=== PATIENT | female | born 1980 | race Caucasian/White ===

== ENCOUNTER → 2021-11-20 11:45 | Outpatient (CLI) | payer OTHER, SELFPAY ==
[2021-11-20 13:05] LABS: Influenza A - CEPHEID Flu A NEGATIVE (NEGATIVE); Influenza B - CEPHEID Flu B NEGATIVE (NEGATIVE)
[2021-11-20 13:24] LABS: COVID-19 CEPHEID PCR (VTM/NP) Negative (Negative)
== END ==
PROVIDERS: Visit Provider Physician Assistant
DX: Z20.822 Contact with and (suspected) exposure to COVID-19 (principal); R09.81 Nasal congestion
CPT/HCPCS: 0240U

== ENCOUNTER 2022-05-09 15:42 | Emergency (ER) | payer OTHER, MEDICAID, SELFPAY ==
[2022-05-09 15:52] VITALS: BP 100/51; PULSE 96; RESP 20; TEMP 38.1; O2SAT 97
[2022-05-09 16:13] LABS: Add Manual Diff / Slide Review NO; Basophils Absolute Auto 100 /uL (0-100); Basophils Percent Auto 1.3 % (0-2); Eosinophils Absolute Auto 100 /uL (0-450); Eosinophils Percent Auto 1.4 % (2-4); Hematocrit 32.7 % (36-46); Hemoglobin 11.4 g/dL (12.0-16.0); Lymphocytes Absolute Auto 600 /uL (1100-4500); Lymphocytes Percent Auto 12.9 % (25-40); Mean Corpuscular HGB Conc 34.8 % (30-36); Mean Corpuscular Hemoglobin 28.3 PG (26-34); Mean Corpuscular Volume 81.5 fL (80-100); Monocytes Absolute Auto 600 /uL (0-900); Monocytes Percent Auto 13.3 % (3-14); Neutrophils Absolute Auto 3300 /uL (1500-7000); Neutrophils Percent Auto 71.1 % (50-75); Platelet Count 157 X10^3/uL (150-400); Red Blood Cell Count 4.02 X10^6/uL (4.0-5.2); Red Cell Distribution Width 13.5 % (11.6-14.8); White Blood Cell Count 4.6 X10^3/uL (4.5-11.0)
[2022-05-09 16:23] LABS: Lactate (Lactic Acid) 0.8 mmol/L (0.7-2.1)
[2022-05-09 16:46] LABS: Alanine Aminotransferase 19 IU/L (<35); Albumin 4.6 g/dL (3.5-5.0); Albumin Globulin Ratio 1.4 (1.0-2.8); Alkaline Phosphatase 43 U/L (38-126); Aspartate Aminotransferase 32 IU/L (14-36); BUN Creatinine Ratio 21.4 (6-22); Bilirubin Total 0.6 mg/dL (0.2-1.3); Blood Urea Nitrogen 15 mg/dL (7-17); Calcium 9.2 mg/dL (8.4-10.2); Carbon Dioxide 22 mmol/L (22-32); Chloride 103 mmol/L (98-107); Estimated Glomerular Filt Rate > 60 mL/min (>60); Globulin 3.2 g/dL (1.7-4.1); Glucose 96 mg/dL (70-100); HEMOLYSIS < 15 (0-50); Lipase 160 U/L (23-300); Potassium 3.8 mmol/L (3.4-5.1); Sodium 135 mmol/L (137-145); Total Protein 7.8 g/dL (6.3-8.2)
[2022-05-09 17:36] VITALS: TEMP 38.1
[2022-05-09] MEDS: SODIUM CHLORIDE 0.9% 1,000 ML 1000 ML IV (17:38)
[2022-05-09 17:42] VITALS: BP 101/58; PULSE 100; RESP 22; O2SAT 100
[2022-05-09 17:45] VITALS: TEMP 38.1
[2022-05-09] MEDS: KETOROLAC 30 MG/ML VIAL IV (17:45)
[2022-05-09] MEDS: ONDANSETRON 4 MG/2 ML INJ IV (17:45)
[2022-05-09 17:55] LABS: COVID19 -Nasal RAPID POSITIVE (Negative)
[2022-05-09 18:54] VITALS: TEMP 37.5
--- NOTE | 2022-05-09 18:55 | ED.FEVER ---
HPI - Fever <Brayden Zhao PA-C - Last Filed: 05/09/22 19:02> General Chief Complaint: Fever Stated Complaint: FEVER RIGHT SIDE LOWER PAIN Time Seen by Provider: 05/09/22 17:34 Source: patient Mode of arrival: Ambulatory History of Present Illness HPI Narrative: 41-year-old female with no reported past medical history presents to the ED with 1 day fever, chills, groin pain, back pain. Patient also endorses a mild headache and nausea. Patient denies runny nose, sore throat, cough, chest pain, shortness of breath, vomiting, lightheadedness, dizziness, syncope. Patient denies numbness, tingling, weakness, saddle paresthesias, IV drug use. Related Data Home Medications Medication Instructions Recorded Confirmed No Known Home Medications 11/20/21 05/09/22 Allergies Allergy/AdvReac Type Severity Reaction Status Date / Time No Known Drug Allergies Allergy Unverified 11/20/21 11:41 Review of Systems <Brayden Zhao PA-C - Last Filed: 05/09/22 19:02> Review of Systems ROS Unobtainable: All systems reviewed & are unremarkable except as noted in HPI and below Constitutional Constitutional: Reports chills, Denies fatigue, Reports fever(s), Denies frequent falls, Denies lethargy and Denies weakness Eyes Eyes: Denies change in vision, Denies eye discharge, Denies irritation and Denies loss of vision ENT Ears, Nose, Mouth, and Throat: Denies change in voice, Denies dizziness, Denies neck pain, Denies sore throat and Denies throat swelling Cardiovascular Cardiovascular: Denies chest pain, Denies irregular heart rhythm, Denies lightheadedness, Denies palpitations, Denies dyspnea, Denies dyspnea on exertion and Denies orthopnea Respiratory Respiratory: Denies cough, Denies dyspnea, Denies dyspnea on exertion and Denies wheezing Gastrointestinal Gastrointestinal: Denies abdominal pain, Denies change in bowel habits, Denies diarrhea, Denies nausea and Denies vomiting Genitourinary Genitourinary: Denies hematuria, Denies flank pain, Denies urinary incontinence and Denies urinary urgency Comments: Bilateral groin pain. Musculoskeletal Musculoskeletal: Denies back pain, Denies muscle weakness, Denies neck pain, Denies numbness and Denies tingling Comments: Lower back pain Integumentary/Breasts Skin/Breast: Denies pruritus, Denies erythema, Denies rash and Denies wounds Neurologic Neurologic: Denies behavioral changes, Denies confusion, Denies dizziness, Denies frequent falls, Denies loss of vision, Denies numbness, Denies tingling and Denies weakness Psychiatric Psychiatric: Denies anxiety, Denies behavioral changes, Denies confusion, Denies depression, Denies homicidal ideation and Denies suicidal ideation Endocrine Endocrine: Denies fatigue, Denies flushing and Denies palpitations Hematologic/Lymphatic Hematologic/Lymphatic: Denies easy bruising Allergic/Immunologic Allergic/Immunologic: Denies urticaria, Denies throat swelling and Denies wheezing Patient History <Brayden Zhao PA-C - Last Filed: 05/09/22 19:02> Social History Smoking Status: Never smoker Smoking Status: Never smoker Exam <Brayden Zhao PA-C - Last Filed: 05/09/22 19:02> Narrative Exam Narrative: Const General:?cooperative, healthy appearing and comfortable [facility] Head:?normal to inspection Ears:?hearing grossly normal bilaterally Nose:?external nose normal Face and sinus:?normal facial exam and sinuses nontender Mouth:?oral mucosae normal Throat:?posterior oropharynx normal Eyes General:?appearance normal, both eyes and all related structures Neck Neck:?normal visual inspection and no lymphadenopathy noted; no neck stiffness Resp Effort & Inspection:?normal respiratory effort Auscultation:?clear to auscultation bilaterally Cardio Rate:?regular rate Rhythm:?regular rhythm GI Abdomen is soft, nondistended, nontender to palpation. No CVA tenderness. Musculoskeletal No midline tenderness to palpation. Full range of motion. Neurovascularly intact. Neuro General:?patient alert, patient awake and patient oriented x3 Initial Vital Signs Initial Vital Signs: Vital Signs Temperature 100.5 F H 05/09/22 15:52 Pulse Rate 96 H 05/09/22 15:52 Respiratory Rate 20 05/09/22 15:52 Blood Pressure 100/51 L 05/09/22 15:52 Pulse Oximetry 97 05/09/22 15:52 Oxygen Delivery Method 05/09/22 15:52 <Karla Hughes DO - Last Filed: 05/10/22 20:42> Initial Vital Signs Initial Vital Signs: Vital Signs Temperature 100.5 F H 05/09/22 15:52 Pulse Rate 96 H 05/09/22 15:52 Respiratory Rate 20 05/09/22 15:52 Blood Pressure 100/51 L 05/09/22 15:52 Pulse Oximetry 97 05/09/22 15:52 Oxygen Delivery Method 05/09/22 15:52 Course <Brayden Zhao PA-C - Last Filed: 05/09/22 19:02> Orders Ordered: Discontinued Medications Acetaminophen (Acetaminophen 325 Mg Tablet) 650 mg PO NOW ONE Stop: 05/09/22 17:19 Last Admin: 05/09/22 17:41 Dose: Not Given Documented By: VINNY Sodium Chloride (Normal Saline 0.9%) 1,000 mls @ 1,000 mls/hr IV BOLUS ONE Stop: 05/09/22 18:31 Last Infusion: 05/09/22 18:54 Dose: 0 mls/hr Documented By: Admin: 05/09/22 17:38 Dose: 1,000 mls/hr Documented By: VINNY Ibuprofen (Ibuprofen 400 Mg Tablet) 800 mg PO NOW ONE Stop: 05/09/22 17:19 Last Admin: 05/09/22 17:42 Dose: Not Given Documented By: VINNY Ketorolac Tromethamine (Ketorolac 30 Mg/Ml Vial) 30 mg IV NOW ONE Stop: 05/09/22 17:43 Last Admin: 05/09/22 17:45 Dose: 30 mg Documented By: VINNY Ondansetron HCl (Ondansetron 4 Mg/2 Ml Inj) 4 mg IV NOW ONE Stop: 05/09/22 17:43 Last Admin: 05/09/22 17:45 Dose: 4 mg Documented By: VINNY Vital Signs Vital signs: Vital Signs - 8 hr 05/09/22 15:52 05/09/22 17:36 05/09/22 17:45 Temperature 100.5 F H 100.6 F H 100.5 F H Pulse Rate 96 H Respiratory Rate 20 Blood Pressure 100/51 L Pulse Oximetry 97 Oxygen Delivery Method Room Air 05/09/22 17:42 05/09/22 18:54 Temperature 99.5 F Pulse Rate 100 H Respiratory Rate 22 Blood Pressure 101/58 L Pulse Oximetry 100 Oxygen Delivery Method Room Air <Karla Hughes DO - Last Filed: 05/10/22 20:42> Orders Ordered: Discontinued Medications Acetaminophen (Acetaminophen 325 Mg Tablet) 650 mg PO NOW ONE Stop: 05/09/22 17:19 Last Admin: 05/09/22 17:41 Dose: Not Given Documented By: VINNY Sodium Chloride (Normal Saline 0.9%) 1,000 mls @ 1,000 mls/hr IV BOLUS ONE Stop: 05/09/22 18:31 Last Infusion: 05/09/22 18:54 Dose: 0 mls/hr Documented By: Admin: 05/09/22 17:38 Dose: 1,000 mls/hr Documented By: VINNY Ibuprofen (Ibuprofen 400 Mg Tablet) 800 mg PO NOW ONE Stop: 05/09/22 17:19 Last Admin: 05/09/22 17:42 Dose: Not Given Documented By: VINNY Ketorolac Tromethamine (Ketorolac 30 Mg/Ml Vial) 30 mg IV NOW ONE Stop: 05/09/22 17:43 Last Admin: 05/09/22 17:45 Dose: 30 mg Documented By: VINNY Ondansetron HCl (Ondansetron 4 Mg/2 Ml Inj) 4 mg IV NOW ONE Stop: 05/09/22 17:43 Last Admin: 05/09/22 17:45 Dose: 4 mg Documented By: VINNY Vital Signs Vital signs: Vital Signs - 8 hr 05/09/22 15:52 05/09/22 17:36 05/09/22 17:45 Temperature 100.5 F H 100.6 F H 100.5 F H Pulse Rate 96 H Respiratory Rate 20 Blood Pressure 100/51 L Pulse Oximetry 97 Oxygen Delivery Method Room Air 05/09/22 17:42 05/09/22 18:54 Temperature 99.5 F Pulse Rate 100 H Respiratory Rate 22 Blood Pressure 101/58 L Pulse Oximetry 100 Oxygen Delivery Method Room Air MDM - Fever <Brayden Zhao PA-C - Last Filed: 05/09/22 19:02> Lab Data Attestation: I reviewed the patient's lab results. Lab results narrative: Labs within normal limits. UA without UTI. Result diagrams: 05/09/22 16:02 05/09/22 16:02 Labs: Lab Results 07/25/22 07/25/22 07/25/22 Range/Units 16:02 16:02 16:02 WBC 4.6 (4.5-11.0) X10^3/uL RBC 4.02 (4.0-5.2) X10^6/uL Hgb 11.4 L (12.0-16.0) g/dL Hct 32.7 L (36-46) % MCV 81.5 (80-100) fL MCH 28.3 (26-34) PG MCHC 34.8 (30-36) % RDW 13.5 (11.6-14.8) % Plt Count 157 (150-400) X10^3/uL Neut % (Auto) 71.1 (50-75) % Lymph % (Auto) 12.9 L (25-40) % [place] % (Auto) 13.3 (3-14) % Eos % (Auto) 1.4 L (2-4) % Baso % (Auto) 1.3 (0-2) % Neut # (Auto) 3300 (6734-5830) /uL Lymph # (Auto) 600 L (6455-0910) /uL [facility] # (Auto) 600 (0-900) /uL Eos # (Auto) 100 (0-450) /uL Baso # (Auto) 100 (0-100) /uL Sodium 135 L (137-145) mmol/L Potassium 3.8 (3.4-5.1) mmol/L Chloride 103 (98-107) mmol/L Carbon Dioxide 22 (22-32) mmol/L BUN 15 (7-17) mg/dL Creatinine 0.70 (0.52-1.04) mg/dL Estimated GFR > 60 (>60) mL/min BUN/Creatinine Ratio 21.4 (6-22) Glucose 96 (70-100) mg/dL Lactate 0.8 (0.7-2.1) mmol/L Calcium 9.2 (8.4-10.2) mg/dL Total Bilirubin 0.6 (0.2-1.3) mg/dL AST 32 (14-36) IU/L ALT 19 (<35) IU/L Alkaline Phosphatase 43 (38-126) U/L Total Protein 7.8 (6.3-8.2) g/dL Albumin 4.6 (3.5-5.0) g/dL Globulin 3.2 (1.7-4.1) g/dL Albumin/Globulin Ratio 1.4 (1.0-2.8) Lipase 160 (23-300) U/L SARS-CoV-2 (PCR) (Negative) 05/09/22 Range/Units 17:32 WBC (4.5-11.0) X10^3/uL RBC (4.0-5.2) X10^6/uL Hgb (12.0-16.0) g/dL Hct (36-46) % MCV (80-100) fL MCH (26-34) PG MCHC (30-36) % RDW (11.6-14.8) % Plt Count (150-400) X10^3/uL Neut % (Auto) (50-75) % Lymph % (Auto) (25-40) % [facility] % (Auto) (3-14) % Eos % (Auto) (2-4) % Baso % (Auto) (0-2) % Neut # (Auto) (8212-8336) /uL Lymph # (Auto) (7192-4581) /uL [facility] [place] # (Auto) (0-900) /uL Eos # (Auto) (0-450) /uL Baso # (Auto) (0-100) /uL Sodium (137-145) mmol/L Potassium (3.4-5.1) mmol/L Chloride (98-107) mmol/L Carbon Dioxide (22-32) mmol/L BUN (7-17) mg/dL Creatinine (0.52-1.04) mg/dL Estimated GFR (>60) mL/min BUN/Creatinine Ratio (6-22) Glucose (70-100) mg/dL Lactate (0.7-2.1) mmol/L Calcium (8.4-10.2) mg/dL Total Bilirubin (0.2-1.3) mg/dL AST (14-36) IU/L ALT (<35) IU/L Alkaline Phosphatase (38-126) U/L Total Protein (6.3-8.2) g/dL Albumin (3.5-5.0) g/dL Globulin (1.7-4.1) g/dL Albumin/Globulin Ratio (1.0-2.8) Lipase (23-300) U/L SARS-CoV-2 (PCR) Positive H (Negative) Point of Care Testing Test Results Negative Urine Dip Bedside Urine Glucose Negative Bedside Urine Bilirubin - Negative Bedside Urine Ketone - Negative Urine Specific [place] 1.010 Bedside Urine Occult Blood - Negative Bedside Urine pH 6.0 Bedside Urine Protein - Negative Bedside Urine Urobilinogen - Negative Bedside Urine Nitrite - Negative Bedside Urine Leukocytes - Negative Esterase MDM Narrative Medical decision making narrative: 41-year-old female with no reported past medical history presents to the ED with 1 day fever, chills, groin pain, back pain. Concern for COVID-19 infection versus other viral syndrome versus musculoskeletal sprain/strain. Unlikely intra-abdominal pathology, given physical exam with no tenderness to palpation and patient describes pain as musculoskeletal. Patient was positive for COVID-19. Recommend supportive care. Discussed findings and recommendations with patient. ED return precautions discussed with patient. Patient verbalized understanding. <Karla Hughes, DO - Last Filed: 05/10/22 20:42> Lab Data Labs: Lab Results 05/09/22 05/09/22 05/09/22 Range/Units 16:02 16:02 16:02 WBC 4.6 (4.5-11.0) X10^3/uL RBC 4.02 (4.0-5.2) X10^6/uL Hgb 11.4 L (12.0-16.0) g/dL Hct 32.7 L (36-46) % MCV 81.5 (80-100) fL MCH 28.3 (26-34) PG MCHC 34.8 (30-36) % RDW 13.5 (11.6-14.8) % Plt Count 157 (150-400) X10^3/uL Neut % (Auto) 71.1 (50-75) % Lymph % (Auto) 12.9 L (25-40) % [facility] % (Auto) 13.3 (3-14) % Eos % (Auto) 1.4 L (2-4) % Baso % (Auto) 1.3 (0-2) % Neut # (Auto) 3300 (0525-9569) /uL Lymph # (Auto) 600 L (0914-4386) /uL [facility] # (Auto) 600 (0-900) /uL Eos # (Auto) 100 (0-450) /uL Baso # (Auto) 100 (0-100) /uL Sodium 135 L (137-145) mmol/L Potassium 3.8 (3.4-5.1) mmol/L Chloride 103 (98-107) mmol/L Carbon Dioxide 22 (22-32) mmol/L BUN 15 (7-17) mg/dL Creatinine 0.70 (0.52-1.04) mg/dL Estimated GFR > 60 (>60) mL/min BUN/Creatinine Ratio 21.4 (6-22) Glucose 96 (70-100) mg/dL Lactate 0.8 (0.7-2.1) mmol/L Calcium 9.2 (8.4-10.2) mg/dL Total Bilirubin 0.6 (0.2-1.3) mg/dL AST 32 (14-36) IU/L ALT 19 (<35) IU/L Alkaline Phosphatase 43 (38-126) U/L Total Protein 7.8 (6.3-8.2) g/dL Albumin 4.6 (3.5-5.0) g/dL Globulin 3.2 (1.7-4.1) g/dL Albumin/Globulin Ratio 1.4 (1.0-2.8) Lipase 160 (23-300) U/L SARS-CoV-2 (PCR) (Negative) 05/09/22 Range/Units 17:32 WBC (4.5-11.0) X10^3/uL RBC (4.0-5.2) X10^6/uL Hgb (12.0-16.0) g/dL Hct (36-46) % MCV (80-100) fL MCH (26-34) PG MCHC (30-36) % RDW (11.6-14.8) % Plt Count (150-400) X10^3/uL Neut % (Auto) (50-75) % Lymph % (Auto) (25-40) % [place] % (Auto) (3-14) % Eos % (Auto) (2-4) % Baso % (Auto) (0-2) % Neut # (Auto) (9254-3465) /uL Lymph # (Auto) (5666-2214) /uL [facility] # (Auto) (0-900) /uL Eos # (Auto) (0-450) /uL Baso # (Auto) (0-100) /uL Sodium (137-145) mmol/L Potassium (3.4-5.1) mmol/L Chloride (98-107) mmol/L Carbon Dioxide (22-32) mmol/L BUN (7-17) mg/dL Creatinine (0.52-1.04) mg/dL Estimated GFR (>60) mL/min BUN/Creatinine Ratio (6-22) Glucose (70-100) mg/dL Lactate (0.7-2.1) mmol/L Calcium (8.4-10.2) mg/dL Total Bilirubin (0.2-1.3) mg/dL AST (14-36) IU/L ALT (<35) IU/L Alkaline Phosphatase (38-126) U/L Total Protein (6.3-8.2) g/dL Albumin (3.5-5.0) g/dL Globulin (1.7-4.1) g/dL Albumin/Globulin Ratio (1.0-2.8) Lipase (23-300) U/L SARS-CoV-2 (PCR) Positive H (Negative) Point of Care Testing Test Results Negative Urine Dip Bedside Urine Glucose Negative Bedside Urine Bilirubin - Negative Bedside Urine Ketone - Negative Urine Specific [place] 1.010 Bedside Urine Occult Blood - Negative Bedside Urine pH 6.0 Bedside Urine Protein - Negative Bedside Urine Urobilinogen - Negative Bedside Urine Nitrite - Negative Bedside Urine Leukocytes - Negative Esterase Discharge Plan Departure Patient Disposition: Home Clinical Impression: COVID-19 Instructions: DI for COVID-19 (Suspected or Confirmed ) Activity Restrictions/Additional Instructions: You were evaluated in the ED today for upper respiratory symptoms. You tested positive for COVID-19 in the emergency room. Your symptoms are likely due to COVID-19. Your hip and pelvic pain appears to be musculoskeletal in nature. You may take Tylenol or ibuprofen for your symptoms. Return to the ED if you develop chest pain, shortness of breath. Prescriptions: No Action No Known Home Medications Visit Report Forms: Patient Portal/API <Karla Hughes DO - Last Filed: 05/10/22 20:42> Cosign ED Attending Nida Attestation: I was immediately available in the department for consultation. Documentation has been reviewed. I agree with assessment and plan.
== END 2022-05-09 20:14 | disposition home or self-care (01) ==
PROVIDERS: Emergency Medicine; Emergency Provider Student in an Organized Health Care Education/Training Program
DX: U07.1 COVID-19 (principal)
CPT/HCPCS: 36415; 80053; 81003; 81025; 83605; 83690; 85025; 87040; 87635; 96361; 96374; 96375; 99284; C9803; J1885; J2405

== ENCOUNTER → 2023-06-15 14:46 | Outpatient (CLI) | payer OTHER, SELFPAY ==
--- NOTE | 2023-06-15 14:50 | DI.RAD.S_ITS ---
PROCEDURE: XR FINGER RT MIN 2V INDICATIONS: pain in both thumbs TECHNIQUE: PA hand, 2 views of the thumb acquired. COMPARISON: None. FINDINGS: Bones: No acute fractures or dislocations. No suspicious bony lesions. Moderate degenerative changes are seen at the 1st carpometacarpal joint with subchondral sclerosis and joint space narrowing. Soft tissues: No suspicious soft tissue calcifications. 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 No acute osseous abnormality. If the symptoms persist, consider cross sectional imaging such as MRI or CT for further assessment. Approved by: Neno Buchanan M.D. on 06/15/2023 at 16:29
--- NOTE | 2023-06-15 14:50 | DI.RAD.S_ITS ---
PROCEDURE: XR FINGER LT MIN 2V INDICATIONS: pain in both thumbs TECHNIQUE: AP hand, 2 views of the 1st finger(s) acquired. COMPARISON: None. FINDINGS: Bones: No fractures or dislocations. No suspicious bony lesions. Soft tissues: No suspicious soft tissue calcifications. IMPRESSION: No acute osseous abnormality. If pain persists with conservative management, consider repeat x-ray in 10-14 days or cross-sectional imaging. Dictated by: Figueroa Estrella M.D. on 06/15/2023 at 16:12 Approved by: Figueroa Estrella M.D. on 06/15/2023 at 16:12
== END ==
PROVIDERS: PCP Family Medicine; Referring Provider Family Medicine; Visit Provider Family Medicine
DX: M18.11 Unilateral primary osteoarthritis of first carpometacarpal joint, right hand (principal); M79.644 Pain in right finger(s); M79.645 Pain in left finger(s)
CPT/HCPCS: 73140

== ENCOUNTER → 2023-06-22 13:41 | Outpatient (ROUT) | payer OTHER, SELFPAY | PROVIDERS: PCP Family Medicine; Visit Provider Family Medicine | DX: Z77.011 Contact with and (suspected) exposure to lead (principal) | CPT/HCPCS: 83655 ==

== ENCOUNTER 2024-10-23 04:07 | Emergency (ER) | payer SELFPAY ==
[2024-10-23] VITALS (13 sets, daily range): BP systolic 92–142; BP diastolic 50–72; PULSE 46–66; RESP 16–19; TEMP 36.9; O2SAT 95–100; BMI 30.7
[2024-10-23 05:09] LABS: Ictotest Urine Negative (Negative)
--- NOTE | 2024-10-23 05:16 | ED_ITS ---
HPI - Back Pain/Injury General Chief Complaint: Back Pain/Injury Stated Complaint: lower back pain Time Seen by Provider: 10/23/24 04:13 Source: patient History of Present Illness HPI Narrative: 44-year-old female with no significant past medical history presents with 5 days of left-sided lower back pain that radiates into her groin. Patient states that she has had somewhat chronic lower back issues and sees a chiropractor frequently. She went to the chiropractor for this back pain and received an adjustment. She reported several hours of relief but the pain returned. She has been taking Tylenol, ibuprofen, icing, stretching without relief. She states that standing or lying prone with a pillow tucked up under her hips is the only way that she is able to get any pain relief. States that she has had somewhat decreased urination recently. Tonight the pain continued and she was again unable to sleep, so she decided to come to the ER for evaluation. Related Data Previous Rx's Medication Instructions Recorded methocarbamol 500 mg tablet 500 mg PO TID #30 tabs 10/23/24 methylprednisolone 4 mg tablets in See Rx Instructions PO .COMPLEX 10/23/24 a dose pack (Medrol (Jim)) #21 ea Allergies Allergy/AdvReac Type Severity Reaction Status Date / Time No Known Drug Allergies Allergy Unverified 11/20/21 11:41 Patient History Social History Smoking Status: Never smoker Smoking Status: Never smoker Exam Initial Vital Signs Initial Vital Signs: Vital Signs Temperature 98.4 F 10/23/24 04:12 Pulse Rate 66 10/23/24 04:12 Respiratory Rate 18 10/23/24 04:12 Blood Pressure 142/72 H 10/23/24 04:12 Pulse Oximetry 99 10/23/24 04:12 Oxygen Delivery Method Room Air 10/23/24 04:12 Const: Awake, alert, no acute distress, nontoxic appearing Cardiac: regular rate, regular rhythm RESP: unlabored, clear bilaterally, no wheezing GI: Soft, nontender, nondistended MSK back: No midline tenderness, no CVA tenderness bilaterally Skin: Warm, Dry, intact, no rashes Neuro: AO x3, CN II-XII grossly intact, moves all extremities Course Orders Ordered: Discontinued Medications Dexamethasone (Dexamethasone 10 Mg/Ml Vial) 10 mg IV NOW ONE Stop: 10/23/24 06:31 Last Admin: 10/23/24 06:42 Dose: 10 mg Documented By: MARYLOU Diazepam (Diazepam 10 Mg/2 Ml Syringe) 3 mg IV NOW ONE Stop: 10/23/24 06:31 Last Admin: 10/23/24 06:42 Dose: 3 mg Documented By: MARYLOU Acetaminophen (Ofirmev) 1,000 mg in 100 mls @ 400 mls/hr IV NOW ONE Stop: 10/23/24 06:44 Last Infusion: 10/23/24 07:09 Dose: Infused Documented By: Admin: 10/23/24 06:43 Dose: 400 mls/hr Documented By: MARYLOU Ketorolac Tromethamine (Ketorolac 30 Mg/Ml Vial) 15 mg IV NOW ONE Stop: 10/23/24 05:16 Last Admin: 10/23/24 05:48 Dose: 15 mg Documented By: MARYLOU Vital Signs Vital signs: Vital Signs - 8 hr 10/23/24 04:12 10/23/24 05:52 10/23/24 05:53 Temperature 98.4 F Pulse Rate 66 46 L 46 L Respiratory Rate 18 18 Blood Pressure 142/72 H Pulse Oximetry 99 98 100 Oxygen Delivery Method Room Air 10/23/24 05:53 10/23/24 06:00 10/23/24 06:01 Temperature Pulse Rate 55 L 51 L Respiratory Rate 19 Blood Pressure 122/54 L Pulse Oximetry 97 97 Oxygen Delivery Method Room Air Room Air 10/23/24 06:01 10/23/24 06:30 10/23/24 06:31 Temperature Pulse Rate 62 62 Respiratory Rate Blood Pressure 105/52 L Pulse Oximetry 99 99 Oxygen Delivery Method 10/23/24 06:51 10/23/24 06:51 10/23/24 07:00 Temperature Pulse Rate 55 L 57 L Respiratory Rate 17 Blood Pressure 112/53 L Pulse Oximetry 95 96 Oxygen Delivery Method Room Air 10/23/24 07:00 10/23/24 07:02 10/23/24 07:02 Temperature Pulse Rate 57 L 63 Respiratory Rate 17 Blood Pressure 92/50 L Pulse Oximetry 96 98 Oxygen Delivery Method Room Air MDM - Back Pain/Injury Differential Diagnosis Differential diagnosis: Likely lumbar radiculopathy, sciatica and strain of lumbar region Lab Data 10/23/24 05:33 10/23/24 05:33 Labs: Lab Results 10/23/24 10/23/24 Range/Units 04:45 05:33 WBC 7.5 (4.5-11.0) X10^3/uL RBC 4.54 (4.0-5.2) X10^6/uL Hgb 12.6 (12.0-16.0) g/dL Hct 37.4 (36-46) % MCV 82.5 (80-100) fL MCH 27.8 (26-34) PG MCHC 33.7 (30-36) % RDW 14.1 (11.6-14.8) % Plt Count 255 (150-400) X10^3/uL Neut % (Auto) 32.1 L (50-75) % Lymph % (Auto) 52.5 H (25-40) % [place] % (Auto) 6.7 (3-14) % Eos % (Auto) 7.4 H (2-4) % Baso % (Auto) 1.3 (0-2) % Neut # (Auto) 2400 (6805-2439) /uL Lymph # (Auto) 3900 (3961-4958) /uL [place] # (Auto) 500 (0-900) /uL Eos # (Auto) 600 H (0-450) /uL Baso # (Auto) 100 (0-100) /uL Sodium 137 (137-145) mmol/L Potassium 4.0 (3.4-5.1) mmol/L Chloride 105 (98-107) mmol/L Carbon Dioxide 25 (22-32) mmol/L BUN 19 H (7-17) mg/dL Creatinine 0.90 (0.52-1.04) mg/dL Estimated GFR > 60 (>60) mL/min BUN/Creatinine Ratio 21.1 (6-22) Glucose 92 (70-100) mg/dL Calcium 9.4 (8.4-10.2) mg/dL Total Bilirubin 0.4 (0.2-1.3) mg/dL AST 34 (14-36) IU/L ALT 26 (<35) IU/L Alkaline Phosphatase 52 (38-126) U/L Total Protein 7.8 (6.3-8.2) g/dL Albumin 4.5 (3.5-5.0) g/dL Globulin 3.3 (1.7-4.1) g/dL Albumin/Globulin Ratio 1.4 (1.0-2.8) Ur Bilirubin Confirm Negative (Negative) Point of Care Testing Test Results Negative Urine Dip Bedside Urine Glucose Negative Bedside Urine Bilirubin + 1 Bedside Urine Ketone - Negative Urine Specific [place] 1.030 Bedside Urine Occult Blood - Negative Bedside Urine pH 6.0 Bedside Urine Protein +/- 15 Bedside Urine Urobilinogen - Negative Bedside Urine Nitrite - Negative Bedside Urine Leukocytes - Negative Esterase Imaging Data CT scan - abdomen/pelvis: Radiologist's Impression: Preliminary review: No obvious abdominal pelvic pathology MDM Narrative Medical decision making narrative: Well-appearing patient with 5 days of persistent symptoms despite use of [id number] therapies. Exam is fairly unremarkable, pain unable to be reproduced to palpation. Question if this could be possible kidney stone due to patient's description of pain. Laboratory work, CT imaging ordered. Laboratory work reviewed, no significant abnormalities identified. CT imaging shows no findings to explain patient's symptoms. Possible musculoskeletal spasm. Additional pain medications ordered for symptomatic control. Patient reassessed, is now able to lay in bed, comfortable with legs propped up under her pillow. Patient counseled on lab and imaging findings. Possible muscle spasm versus radiculopathy pain. Patient states that she will follow up with her primary care doctor in her chiropractor today concerning her symptoms. Steroid pack and muscle relaxers sent to pharmacy of choice. Discharge Plan Departure Patient Disposition: Home Clinical Impression: Strain of lumbar region Instructions: DI for Back Strain or Sprain Activity Restrictions/Additional Instructions: Your laboratory work and CT imaging did not show any obvious causes of your back pain. There was no sign of kidney stones. Take the muscle relaxers and steroids as prescribed along with Tylenol and ibuprofen for continued symptoms. Follow up with your primary care doctor and your chiropractor if you continue to experience symptoms. If you are unable to urinate, notice numbness in your extremities, or lower extremity weakness please return to the emergency department for repeat evaluation. Prescriptions: New methocarbamol 500 mg tablet 500 mg PO TID Qty: 30 0RF methylprednisolone [Medrol (Jim)] 4 mg tablets,dose pack See Rx Instructions .ROUTE .COMPLEX Qty: 21 0RF Rx Instructions: for 6 days Referrals: Mahesh Samuel MD [Primary Care Provider] - Stand Alone Forms: Patient Portal/API/Survey, Work Release Note
--- NOTE | 2024-10-23 05:16 | DI.CT.S_ITS ---
PROCEDURE: CT KIDNEY URETER BLADDER (KUB) INDICATIONS: L FLANK PAIN, POSS STONE? TECHNIQUE: Axial sections were acquired from the lung bases to the pubic symphysis. Coronal and sagittal reformats were performed. For radiation dose reduction, the following was used: automated exposure control, adjustment of mA and/or kV according to patient size. COMPARISON: None. FINDINGS: Image quality: Diagnostic. Lower Chest: No significant findings. URINARY: Right Kidney: No stones or hydronephrosis. Right Ureter: No hydroureter. Left Kidney: No stones or hydronephrosis. Left Ureter: No hydroureter. Bladder: Normal wall thickness. No stones. ABDOMEN: Liver: No contour-deforming solid mass. Gallbladder: No radiopaque gallstones or wall thickening. Biliary ducts: No biliary dilation. Pancreas: No ductal dilation. Spleen: Size is within normal limits. Adrenal Glands: No adrenal nodules. Stomach and Bowel: Normal colonic caliber, without significant wall thickening. Normal appendix. Peritoneum: No abnormal intraperitoneal fluid. No free air. Ventral Wall: No hernia. Abdominal Nodes: No enlarged retroperitoneal or mesenteric lymph nodes. Vessels: Aorta and inferior vena cava are normal in size. PELVIS: Pelvic Organs: Unremarkable. Pelvic Nodes: Unremarkable. Miscellaneous: No inguinal hernias are seen. Bones: Unremarkable. IMPRESSION: No obstructing stones or hydronephrosis. Normal appendix. Agree with preliminary report. Dictated by: Shaun Valenzuela M.D. on 10/23/2024 at 7:34 Approved by: Shaun Valenzuela M.D. on 10/23/2024 at 7:35
[2024-10-23 05:39] LABS: Add Manual Diff / Slide Review NO; Basophils Absolute Auto 100 /uL (0-100); Basophils Percent Auto 1.3 % (0-2); Eosinophils Absolute Auto 600 /uL (0-450); Eosinophils Percent Auto 7.4 % (2-4); Hematocrit 37.4 % (36-46); Hemoglobin 12.6 g/dL (12.0-16.0); Lymphocytes Absolute Auto 3900 /uL (1100-4500); Lymphocytes Percent Auto 52.5 % (25-40); Mean Corpuscular HGB Conc 33.7 % (30-36); Mean Corpuscular Hemoglobin 27.8 PG (26-34); Mean Corpuscular Volume 82.5 fL (80-100); Monocytes Absolute Auto 500 /uL (0-900); Monocytes Percent Auto 6.7 % (3-14); Neutrophils Absolute Auto 2400 /uL (1500-7000); Neutrophils Percent Auto 32.1 % (50-75); Platelet Count 255 X10^3/uL (150-400); Red Blood Cell Count 4.54 X10^6/uL (4.0-5.2); Red Cell Distribution Width 14.1 % (11.6-14.8); White Blood Cell Count 7.5 X10^3/uL (4.5-11.0)
[2024-10-23] MEDS: KETOROLAC 30 MG/ML VIAL 15 MG IV (05:48)
[2024-10-23 05:51] LABS: Alanine Aminotransferase 26 IU/L (<35); Albumin 4.5 g/dL (3.5-5.0); Albumin Globulin Ratio 1.4 (1.0-2.8); Alkaline Phosphatase 52 U/L (38-126); Aspartate Aminotransferase 34 IU/L (14-36); BUN Creatinine Ratio 21.1 (6-22); Bilirubin Total 0.4 mg/dL (0.2-1.3); Blood Urea Nitrogen 19 mg/dL (7-17); Calcium 9.4 mg/dL (8.4-10.2); Carbon Dioxide 25 mmol/L (22-32); Chloride 105 mmol/L (98-107); Estimated Glomerular Filt Rate > 60 mL/min (>60); Globulin 3.3 g/dL (1.7-4.1); Glucose 92 mg/dL (70-100); HEMOLYSIS < 15 (0-50); Sodium 137 mmol/L (137-145); Total Protein 7.8 g/dL (6.3-8.2)
[2024-10-23] MEDS: DEXAMETHASONE 10 MG/ML VIAL IV (06:42)
[2024-10-23] MEDS: diazePAM 10 MG/2 ML SYRINGE 3 MG IV (06:42)
[2024-10-23] MEDS: ACETAMINOPHEN IV 1,000 MG/100 ML VIAL 400 MG IV (06:43)
== END 2024-10-23 07:34 | disposition home or self-care (01) ==
PROVIDERS: Emergency Provider Emergency Medicine; PCP Family Medicine
DX: S39.012A Strain of muscle, fascia and tendon of lower back, initial encounter (principal); R10.32 Left lower quadrant pain; X58.XXXA Exposure to other specified factors, initial encounter
CPT/HCPCS: 36415; 74176; 80053; 81003; 81025; 85025; 96365; 96375; 99284; J0134; J1100; J1885; J3360